=== PATIENT | female | born 1950 | race Caucasian/White ===

== ENCOUNTER → 2023-10-10 | Outpatient (CLI) | payer MEDICARE ==
--- NOTE | 2023-10-10 11:35 | BD ---
EXAMINATION TYPE: Axial Bone Density DATE OF EXAM: 10/10/2023 CLINICAL HISTORY: 73 years old Female. ICD-10 CODE: Z78.0 Post menopausal Height: 61.5in Weight: 142lb FRAX RISK QUESTIONS: History of Fracture in Adulthood: yes Secondary Osteoporosis: 1. Type 1 Diabetes: unknown RISK FACTORS HISTORY OF: Hip Fracture (Right/Left): yes, left When: 2019 Surgery to Spine/Hip(right/left)/Wrist (right/left): left hip When: 2019 MEDICATIONS: EXAM MEASUREMENTS: Bone mineral densitometry was performed using the [email or web address] System. Bone mineral density as measured about the Lumbar spine is: ----- L1-L4(G/cm2): 1.238 T Score Values are as follows: ----- L1: 0.0 ----- L2: 0.3 ----- L3: 1.2 ----- L4: 0.1 ----- L1-L4: 0.5 Z Score Values are as follows: ----- L1: 1.8 ----- L2: 2.0 ----- L3: 3.0 ----- L4: 1.9 ----- L1-L4: 2.2 First dexa at [facility] Bone mineral density about the R hip (g/cm2): 0.813 T Score values are as follows: -----R Neck: -2.1 -----R Total: -1.5 Z Score values are as follows: -----R Neck: -0.2 -----R Total: 0.1 First dexa at [facility] FRAX%s: The graph provided illustrates a 20.4% chance for a major osteoporotic fx and a 4.8% chance f or the hips probability for fx in 10 years time. IMPRESSION: Osteopenia (T Score between -2.5 and -1). There is slightly increased risk of fracture and the patient may be considered for treatment. Re-Screen 2-5 years. NOTE: T-SCORE=SD OF THE YOUNG ADULT MEAN.
--- NOTE | 2023-10-14 12:48 | MM ---
Reason for Exam: Screening (asymptomatic). Patient History: Menarche at age 12. First Full-Term at age 22. Hysterectomy at age 50. Postmenopausal. Risk Values: Fadumo 5 year model risk: 1.6%. NCI Lifetime model risk: 3.9%. Prior Study Comparison: No prior studies available for comparison. Tissue Density: The breasts are almost entirely fatty. Findings: Analyzed By CAD. Right breast: There is no suspicious group of microcalcifications or new suspicious mass. Benign-appearing calcifications right breast. Left breast: There is no suspicious group of microcalcifications or new suspicious mass. Benign-appearing calcifications left breast. Overall Assessment: Benign, BI-RAD 2 Management: Screening Mammogram of both breasts in [address] [facility] will attempt to contact patient to return for supplemental views and ultrasound if indicated. Patient should continue monthly self-breast exams. A clinical breast exam by your physician is recommended on an annual basis. This exam should not preclude additional follow-up of suspicious palpable abnormalities. Note on Fadumo scores and lifetime risk: 1. A Fadumo score greater than 3% is considered moderate risk. If this is the case, consider specialist referral to assess eligibility for a risk reducing agent. 2. If overall lifetime risk for the development of breast cancer is 20% or higher, the patient may qualify for future screening with alternating mammogram and breast MRI. Electronically signed and approved by: Brando Nelson DO
== END | disposition home or self-care (01) ==
LOC: RADMAMWWP 09:15
PROVIDERS: ATTEND Family Medicine
DX: Z12.31 Encounter for screening mammogram for malignant neoplasm of breast (principal); M85.89 Other specified disorders of bone density and structure, multiple sites; Z78.0 Asymptomatic menopausal state
CPT/HCPCS: 77063; 77067; 77080

== ENCOUNTER 2024-06-08 12:57 | Emergency (ER) | payer MEDICARE ==
[2024-06-08 13:44] VITALS: TEMP 98
--- NOTE | 2024-06-08 13:45 | ED ---
Lower Extremity Injury HPI - General Chief Complaint: Extremity Injury, Lower Stated Complaint: fell-r hip l leg pain Time Seen by Provider: 06/08/24 13:45 Source: patient Mode of arrival: wheelchair Limitations: no limitations - History of Present Illness Initial Comments: 74-year-old female presenting with chief complaint of fall. Patient was using a towel rack to get up from the toilet when she fell about 5 days ago. She is complaining of pain in the left leg, she has an [id number] amputation. She is also complaining of right knee pain and right-sided lower back/hip pain. No head injury loss of consciousness or use of blood thinners. No chest pain, difficulty breathing, abdominal pain. No numbness or tingling. - Related Data Previous Rx's Medication Instructions Recorded HYDROcodone/APAP 7.5-325MG [[place] 1 tab PO Q6HR PRN 3 Days #12 tab 06/08/24 7.5-325] Allergies Allergy/AdvReac Type Severity Reaction Status Date / Time morphine Allergy Rash/Hives Verified 06/08/24 13:44 Review of Systems ROS Statement: Those systems with pertinent positive or pertinent negative responses have been documented in the HPI. ROS Other: All systems not noted in ROS Statement are negative. Past Medical History Past Medical History: Diabetes Mellitus, Hypertension Additional Past Medical History / Comment(s): legally blind in right eye, uterine cancer, Additional Past Surgical History / Comment(s): Left UKA, hysterectomy, Past Psychological History: Depression Smoking Status: Former smoker Past Alcohol Use History: Occasional Past Drug Use History: None Reported General Exam - General Exam Comments Initial Comments: Visual Physical Exam Vital signs reviewed General: Well-appearing, nontoxic, no acute distress. Head: Normocephalic, atraumatic Eyes: PERRLA, EOMI ENT: Airway patent Chest: Nonlabored breathing Skin: No visual rash, normal skin tone Neuro: Alert and oriented 3 Musculoskeletal: No gross abnormalities Limitations: no limitations General appearance: alert, in no apparent distress Head exam: Present: atraumatic, normocephalic, normal inspection Eye exam: Present: normal appearance, EOMI Neck exam: Present: normal inspection, full ROM. Absent: meningismus Respiratory exam: Present: normal lung sounds bilaterally. Absent: respiratory distress, wheezes, rales, rhonchi, stridor Cardiovascular Exam: Present: regular rate, normal rhythm, normal heart sounds. Absent: systolic murmur, diastolic murmur, rubs, gallop, clicks Extremities exam: Present: normal inspection, tenderness (Left thigh) Back exam: Present: normal inspection, tenderness Neurological exam: Present: alert, oriented X3 Psychiatric exam: Present: normal affect, normal mood Skin exam: Present: warm, dry, normal color Course Vital Signs 06/08/24 06/08/24 13:35 17:04 Temperature 98.0 F Pulse Rate 77 84 Respiratory 18 20 Rate Blood Pressure 108/64 142/78 O2 Sat by Pulse 97 97 Oximetry Medical Decision Making - Medical Decision Making I performed the quick note portion of this visit, electronically signed Pamela Salazar PA-C Was pt. sent in by a medical professional or institution ([facility] Galan, INVENTORY MANAGEMENT SPECIALIST, urgent care, hospital, or assisted...) When possible be specific @ -No Did you speak to anyone other than the patient for history (EMS, parent, family, police, friend...)? What history was obtained from this source @ -Family member Did you review nursing and triage notes (agree or disagree)? Why? @ -I reviewed and agree with nursing and triage notes Were old charts reviewed (outside hosp., previous admission, EMS record, old EKG, old radiological studies, urgent care reports/EKG's, assisted records)? Report findings @ -No old charts were reviewed Differential Diagnosis (chest pain, altered mental status, abdominal pain women, abdominal pain men, vaginal bleeding, weakness, fever, dyspnea, syncope, headache, dizziness, GI bleed, back pain, seizure, CVA, palpatations, mental health, musculoskeletal)? @ -Differential Musculoskeletal Muscular strain, contusion, ligament sprain, fracture, arthritis, septic arthritis, bursitis, cellulitis, muscle spasm, nerve compression, DVT, arterial occlusion, herpes zoster, electrolyte abnormality, tumor.... This is not meant to be in all inclusive list EKG interpreted by me (3pts min.). @ -As above X-rays interpreted by me (1pt min.). @ -Femur x-ray shows acute comminuted moderately displaced fracture of the left femoral diaphysis below the intramedullary vladilsav. Postsurgical changes from left proximal femoral fixation and additional postsurgical changes from above the knee amputation Right knee x-ray shows no acute osseous pathology Lumbar spine x-ray shows no acute fracture or dislocation. Mild to moderate m ultilevel degenerative disc disease and facet arthropathy of the lumbar spine Right hip x-ray shows no acute osseous pathology. Mild osteoarthritic changes CT interpreted by me (1pt min.). @ -None done U/S interpreted by me (1pt. min.). @ -None done What testing was considered but not performed or refused? (CT, X-rays, U/S, labs)? Why? @ -None What meds were considered but not given or refused? Why? @ -None Did you discuss the management of the patient with other professionals (professionals i.e. , [facility], INVENTORY MANAGEMENT SPECIALIST, lab, RT, psych nurse, social service manager, training lead, teacher, medical laboratory technical officer, caseworker)? Give summary @ -Spoke with Gayathri MIGUEL from [facility] regarding her findings. She advised splinting and having the patient follow-up in the office Was smoking cessation discussed for >3mins.? @ -No Was critical care preformed (if so, how long)? @ -No Were there social determinants of health that impacted care today? How? (Homelessness, low income, unemployed, alcoholism, drug addiction, transportation, low edu. Level, literacy, decrease access to med. care, senior living, rehab)? @ -No Was there de-escalation of care discussed even if they declined (Discuss DNR or withdrawal of care, Hospice)? DNR status @ -No What co-morbidities impacted this encounter? (DM, HTN, Smoking, COPD, CAD, Cancer, CVA, ARF, Chemo, Hep., AIDS, mental health diagnosis, sleep apnea, morbid obesity)? @ -None Was patient admitted / discharged? Hospital course, mention meds given and route, prescriptions, significant lab abnormalities, going to OR and other pertinent info. @ -74-year-old female presenting with chief complaint of fall. Patient fell a few days ago and is having persistent pain in the right hip and left leg. 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 Given that the patient does not use his extremity for weightbearing, orthopedics does not believe she needs to be admitted for this issue. Patient will be able to follow-up outpatient for follow-up. Splint is applied over the area for padding and protection. Patient and her family member educated on today's findings and treatment plan. Follow- up with PCP. Report back to ER with any new or worsening symptoms. Discussed return parameters and answered all questions. Patient conveyed verbal understanding and agreed to the plan. I discussed this case in detail with my attending Dr. Anderson Undiagnosed new problem with uncertain prognosis? @ -No Drug Therapy requiring intensive monitoring for toxicity (Heparin, Nitro, Insulin, Cardizem)? @ -No Were any procedures done? @ -No Diagnosis/symptom? @ -Femur fracture Acute, or Chronic, or Acute on Chronic? @ -Acute Uncomplicated (without systemic symptoms) or Complicated (systemic symptoms)? @ -Uncomplicated Side effects of treatment? @ -No Exacerbation, Progression, or Severe Exacerbation? @ -No Poses a threat to life or bodily function? How? (Chest pain, [place], [place], pneumonia, PE, COPD, DKA, ARF, appy, cholecystitis, CVA, Diverticulitis, Homicidal, Suicidal, threat to staff... and all critical care pts) @ -Low likelihood Disposition Clinical Impression: Femur fracture Disposition: HOME SELF-CARE Condition: Good Instructions (If sedation given, give patient instructions): Leg Fracture (ED) Additional Instructions: Follow-up with orthopedics. Report back to ER with any new or worsening symptoms. Prescriptions: HYDROcodone/APAP 7.5-325MG [[place] 7.5-325] 1 tab PO Q6HR PRN 3 Days #12 tab PRN Reason: Pain Is patient prescribed a controlled substance at d/c from ED?: Yes When asked, does pt state using other controlled substances?: No If prescribed controlled substance>3 days was MAPS reviewed?: Prescribed <3 Days If opioid is for acute pain is fill amount 7 days or less?: Yes Referrals: Viridiana Townsend DO [Primary Care Provider] - 1-2 days Rhonda Holt [Doctor of Osteopathic Medicine] - 1-2 days Time of Disposition: 16:55
--- NOTE | 2024-06-08 14:47 | XR ---
EXAMINATION TYPE: XR femur LT DATE OF EXAM: 06/08/2024 2:37 PM INDICATION: Patient age:Female; 74 years old; Reason for study: fall; pain COMPARISON: None TECHNIQUE: The left femur was examined in frontal and lateral projections. FINDINGS: Postsurgical changes the proximal left femur with intramedullary vladislav and screw. Hardware a ppears intact with appropriate alignment. No dislocation. Postsurgical changes from above the knee am putation involving the distal left femur. Acute comminuted mildly displaced fracture of the left femo ral diaphysis below the intramedullary vladislav. There is surrounding soft tissue swelling with facet scle rosis identified. IMPRESSION: 1. Acute comminuted moderately displaced fracture of the left femoral diaphysis below the intramedul ashlyn vladislav. 2. Postsurgical changes from left proximal femoral fixation and additional postsurgical changes from [id number] amputation. [facility], , 06/08/2024 2:44 PM
--- NOTE | 2024-06-08 14:48 | XR ---
EXAMINATION TYPE: XR knee complete RT DATE OF EXAM: 06/08/2024 2:42 PM INDICATION: Patient age:Female; 74 years old; Reason for study: fall; [facility]. pain COMPARISON: None. TECHNIQUE: The Right knee(s) was examined in Frontal, lateral and oblique projections. FINDINGS: No evidence of any acute osseous pathology, soft tissue swelling, or joint effusion is no veronika. Vascular sclerosis with couple of surgical clips within the medial aspect of the left lower extr emity just below the knee. Adjacent soft tissue calcifications. IMPRESSION: No acute osseous pathology. [facility], , 06/08/2024 2:46 PM
--- NOTE | 2024-06-08 14:50 | XR ---
EXAMINATION TYPE: XR lumbar spine 2 or 3V DATE OF EXAM: 06/08/2024 CLINICAL HISTORY: pain TECHNIQUE: Three views of the lumbar spine are submitted. COMPARISON: None. FINDINGS: There are 6 lumbar type vertebral bodies identified. The lumbar spine shows satisfactory alignment w ithout evidence of acute fracture or dislocation. Vertebral body heights are within normal limits. Multilevel disc space narrowing with endplate sclerosis and anterior osteophytosis. Multilevel facet arthropathy. The overlying soft tissue appears unremarkable. Atherosclerotic calcification of the ao rta. Surgical clips within left upper quadrant with splenic artery calcification and/or stent. IMPRESSION: 1. No acute fracture or dislocation is seen in the lumbar spine. 2. Mild to moderate multilevel degenerative disc disease and facet arthropathy of the lumbar spine. [facility], , 06/08/2024 2:48 PM
[2024-06-08] MEDS: HYDROmorphone 1 MG/ML 1 ML SYRINGE IM STA (15:23)
--- NOTE | 2024-06-08 15:50 | XR ---
EXAMINATION TYPE: XR Hip Complete RT DATE OF EXAM: 06/08/2024 3:46 PM INDICATION: Patient age:Female; 74 years old; Reason for study: injury; PHH. pain COMPARISON: None. TECHNIQUE: The right hip was examined in the frontal and lateral projections . FINDINGS: No evidence of any acute osseous pathology, joint dislocation, or soft tissue swelling. The re is some acetabular sclerosis with marginal osteophytosis of the right hip with superior joint spac e narrowing. Soft tissue calcifications surrounding the greater trochanter. Facet sclerosis. IMPRESSION: 1. No acute osseous pathology. 2. Mild osteoarthritic changes of the right hip. [facility], , 06/08/2024 3:48 PM
[2024-06-08] MEDS: ACET/COD 300 MG/30 MG STARTER PACK 6 TAB BTL PO STA (17:02)
[2024-06-08 17:07] VITALS: BP 142/78; PULSE 84; RESP 20
== END 2024-06-08 17:08 | disposition home or self-care (01) ==
LOC: EC 12:57
DX: S72.92XA Unspecified fracture of left femur, initial encounter for closed fracture (principal); M51.369 Other intervertebral disc degeneration, lumbar region without mention of lumbar back pain or lower extremity pain; M16.11 Unilateral primary osteoarthritis, right hip; Z87.891 Personal history of nicotine dependence; Z88.5 Allergy status to narcotic agent; W19.XXXA Unspecified fall, initial encounter
CPT/HCPCS: 72100; 73502; 73552; 73562; 99284; 96372; J1171